=== PATIENT | male | born 1980 | race Caucasian/White ===

== ENCOUNTER 2018-09-08 22:10 | Emergency (ER) | payer OTHER | END 2018-09-09 00:27 | LOC: E/R 09-09 00:27 | DX: S96.911A Strain of unspecified muscle and tendon at ankle and foot level, right foot, initial encounter (principal); X58.XXXA Exposure to other specified factors, initial encounter; Y92.9 Unspecified place or not applicable; Z02.89 Encounter for other administrative examinations | CPT/HCPCS: 73590; 73610-RT; 99283-25 ==